=== PATIENT | female | born 2000 | race Caucasian/White ===

== ENCOUNTER 2023-11-17 03:09 | Emergency (ER) | payer SELFPAY ==
[2023-11-17 03:27] VITALS: BP 137/97
[2023-11-17 03:35] VITALS: BMI 22.1
--- NOTE | 2023-11-17 03:44 | ED.GENMED ---
History of Present Illness
General
Chief Complaint: Crisis Evaluation
Time Seen by Provider: 11/17/23 03:36
Travel History
Have you had any contact with someone who has COVID-19?: No
Do you have any symptoms of coronavirus? Fever > 100 degrees, chills, cough, shortness of breath, sore throat, loss of taste or smell, muscle aches, or headache?: No
History of Present Illness
History of Present Illness:
HPI: The initial history was obtained and discussion with the nurse who spoke to police who brought the patient here. The patient was brought here for evaluation as she verbalized suicidal thoughts however this was in the setting of being pulled
over for DUI. This is her second offense. Police went to the 302 her however the patient is clearly intoxicated upon arrival. At 4:30 AM, the patient tells me that she is never was suicidal and realizes now that she should not upset it. She says
that she was in a difficult situation. She said that she was told to drive another person's vehicle by somebody else�that she states that she does not have a car
EXAM:
GENERAL: Initially appeared histrionic and intoxicated however quickly calm down and then had normal conversation as of 4:30 AM
HEENT: Moist oral mucosa
CARDIOVASCULAR: No murmurs, normal heart rate and rhythm, No chest wall tenderness
PULMONARY: No respiratory distress, breath sounds are clear and equal
ABDOMEN: Soft with no peritoneal signs, no tenderness
NEUROLOGIC: Excellent strength all extremities, no coordination deficits
PSYCHIATRIC: Appears only mildly intoxicated but with reasonable insight and judgment
EXTREMITIES: Nontender, no edema, moves all extremities equally
SKIN: No rash, no lesions
ED COURSE:
3:45 AM: She was crying
4:30 AM: I initially evaluated patient and she was more appropriate
NUMBER AND COMPLEXITY OF PROBLEMS ADDRESSED AT THE ENCOUNTER
� Chronic conditions affecting care: Anxiety/depression, asthma, alcohol
� Acute Exacerbation and/or Progression of Chronic Illness: This is an acute problem
� Differential Diagnosis includes: Alcohol intoxication, alcohol use disorder, highly doubt truly suicidal
AMOUNT AND/OR COMPLEXITY OF DATA TO BE REVIEWED AND ANALYZED
� I performed an independent evaluation of and my interpretation is:
EKG:
CT:
X-rays:
Laboratory Studies: CBC normal, chemistries normal, hCG negative, UDS negative, alcohol 228
Other:
� Review of other/old records: I reviewed records, the patient was seen here in 2019 related to anxiety/depression
� Clinical information was obtained by an independent historian: History was also obtained by police
� Prescriptions/Medications Considered but not given:
� Further testing considered but not performed:
RISK OF COMPLICATIONS AND/OR MORBIDITY OR MORTALITY OF PATIENT MANAGEMENT
� Social determinants of health affecting care: Drinks alcohol
� Discussion with other providers: Crisis said that they will still need to interview the patient. I have asked crisis for reassessment to be performed around 8:45 AM as police did petition for 302.
� Escalation of care including admission/observation vs risk of discharge considered: Highly doubt the patient was ever truly suicidal. She admits to saying what she said but verbalizes regret at this point. She currently
denies any feeling of being suicidal.
Past History
Past History
ED Past Medical History: None, Asthma and Psychiatric (Anxiety /Depression)
ED Past Surgical History: None
Social History
Tobacco: Non-smoker
Alcohol: Occasional
Personal: Single
Living: with family
Phy Exam
Physical Exam
Physical Exam:
See HPI
Course
Orders/Labs/Results
Orders:
Orders
11/17/23 03:37
Test Result ONCE
11/17/23 03:44
Alcohol Urgent
Basic Metabolic Panel Urgent
Complete Blood Count/With Diff Urgent
HCG, Serum Qualitative Screen Urgent
Urine Drug Abuse Screen Urgent
Date Specimen was Collected: 11/17/23
Time Specimen was Collected: 03:37
Abnormal Lab Results
11/17/23
03:44
RBC 3.97 L 10^6/uL
(4.20-5.40)
Hct 35.4 L %
(37.0-47.0)
MCH 31.7 H pg
(27.0-31.0)
11/17/23 03:44
11/17/23 03:44
Vital Signs
Initial and Last Documented VS:
Initial Vital Signs
Temp Pulse Resp BP Pulse Ox
98.3 F 97 20 137/97 100
11/17/23 03:27 11/17/23 03:27 11/17/23 03:27 11/17/23 03:27 11/17/23 03:27
Last Documented Vital Signs
Temp Pulse Resp BP Pulse Ox
98.3 F 97 20 137/97 100
11/17/23 03:27 11/17/23 03:27 11/17/23 03:27 11/17/23 03:27 11/17/23 03:38
*Critical Care Note
Total Time (30-74mins, 75-104mins- exclusive of procedures): Not Applicable
ED Attending Note
-
Portions of this chart may have been created with voice recognition software.� Occasional wrong word or��sound alike� substitutions may have occurred due to the inherent limitations of voice recognition software.
Discharge Plan
Departure
Instructions: Alcohol Intoxication ED
Prescriptions:
No Action
quetiapine [Seroquel] 25 mg Tablet
75 mg PO HS
duloxetine [Cymbalta] 60 mg Capsule,Delayed Release(Dr/Ec)
60 mg PO DAILY
Lo Loestrin Fe 1 mg-10 mcg (24)/10 mcg (2) Tablet
1 tab PO DAILY
Referrals:
UNKNOWN - PT NOT,INTERVIEWE [Family Provider] -
Activity Restrictions/Additional Instructions:
Follow with your primary care doctor. Do not drink any alcohol today. Return here if worse or other concerns.
Interventions
Interventions:
*Risk Screen - Suicide Last Done: 11/17/23 03:27
*General Assessment Last Done: 11/17/23 03:42
*Neglect/Abuse Screening Last Done: 11/17/23 03:27
ED- Fall Risk Assessment Last Done: 11/17/23 03:27
*ED COVID-19 Vaccine History Last Done: 11/17/23 03:27
ED-Psychological Assessment Last Done: 11/17/23 03:38
[2023-11-17 03:56] LABS: % Eosinophils 0.3 % (0-6); % Immature Granulocytes 0.3 % (0-0.5); % Lymphocytes 29.5 % (20.5-51.1); % Monocytes 5.1 % (1.7-9.3); % Neutrophils 63.8 % (42.2-75.2); Absolute Basophils 0.1 10^3/uL (0-0.2); Absolute Lymphocytes 1.9 10^3/uL (1.2-3.4); Absolute Monocytes 0.3 10^3/uL (0.1-0.6); Hematocrit 35.4 % (37.0-47.0); Hemoglobin 12.6 g/dL (12.0-16.0); Mean Corp Hgb Conc. 35.6 g/dL (33.0-37.0); Mean Corpuscular Hgb 31.7 pg (27.0-31.0); Mean Corpuscular Volume 89.2 fL (81.0-99.0); Mean Platelet Volume 10.2 fL (7.4-10.4); Nucleated Red Blood Cells % 0 %; Platelet Count 271 10^3/uL (130-400); Red Blood Cell Count 3.97 10^6/uL (4.20-5.40); Red Cell Dist. Width 12.1 % (11.5-14.5); White Blood Cell Count 6.3 10^3/uL (4.8-10.8)
[2023-11-17 04:05] LABS: Amphetamines Negative (Negative); Barbiturates Negative (Negative); Benzodiazepines Negative (Negative); Buprenorphine Negative (Negative); Cocaine Negative (Negative); Marijuana Negative (Negative); Methadone Negative (Negative); Methamphetamines Negative (Negative); Opiates Negative (Negative); Phencyclidine Negative (Negative); Tricyclic Antidepressants Negative (Negative)
[2023-11-17 04:06] LABS: HCG, Serum Qualitative Screen Negative
[2023-11-17 04:17] LABS: Alcohol 228 mg/dl; Blood Urea Nitrogen 12 mg/dl (7-17); Calcium 9.3 mg/dl (8.4-10.2); Carbon Dioxide 23 mmol/L (22-30); Chloride 107 mmol/L (98-107); Estimated Creatinine Clearance 106 ml/min; Glucose 94 mg/dl (70-99); Sodium 140 mmol/L (135-145); eGFR > 60.00
[2023-11-17 09:44] LABS: Alcohol 136 mg/dl
--- NOTE | 2023-11-17 10:09 | EDRN ---
0950 patient outside the room speaking with rn discharge, refusing to return to the room states she is leaving as she has been here 10 hours and states she was told she could leave at 10am. Reoriented her to the situation while waiting for crisis to
come to room. Security has been contacted and outside the room.
[2023-11-17 11:31] LABS: Alcohol 109 mg/dl
[2023-11-17 13:17] LABS: Alcohol 75 mg/dl
--- NOTE | 2023-11-17 13:54 | ED.GENMED ---
History of Present Illness
General
Chief Complaint: Crisis Evaluation
Time Seen by Provider: 11/17/23 03:36
Travel History
Have you had any contact with someone who has COVID-19?: No
Do you have any symptoms of coronavirus? Fever > 100 degrees, chills, cough, shortness of breath, sore throat, loss of taste or smell, muscle aches, or headache?: No
History of Present Illness
History of Present Illness:
See prior note
Past History
Past History
ED Past Medical History: None, Asthma and Psychiatric (Anxiety /Depression)
ED Past Surgical History: None
Social History
Tobacco: Non-smoker
Alcohol: Occasional
Personal: Single
Living: with family
Phy Exam
Physical Exam
Physical Exam:
See prior note
Course
Orders/Labs/Results
Orders:
Orders
11/17/23 03:37
Test Result ONCE
11/17/23 03:44
Alcohol Urgent
Basic Metabolic Panel Urgent
Complete Blood Count/With Diff Urgent
HCG, Serum Qualitative Screen Urgent
Urine Drug Abuse Screen Urgent
Date Specimen was Collected: 11/17/23
Time Specimen was Collected: 03:37
11/17/23 09:15
Alcohol Urgent
11/17/23 11:11
Alcohol Urgent
11/17/23 12:50
Alcohol Urgent
Abnormal Lab Results
11/17/23
03:44
RBC 3.97 L 10^6/uL
(4.20-5.40)
Hct 35.4 L %
(37.0-47.0)
MCH 31.7 H pg
(27.0-31.0)
11/17/23 03:44
11/17/23 03:44
Vital Signs
Initial and Last Documented VS:
Initial Vital Signs
Temp Pulse Resp BP Pulse Ox
36.8 C 97 20 137/97 100
11/17/23 03:27 11/17/23 03:27 11/17/23 03:27 11/17/23 03:27 11/17/23 03:27
Last Documented Vital Signs
Temp Pulse Resp BP Pulse Ox
36.8 C 97 20 137/97 100
11/17/23 03:27 11/17/23 03:27 11/17/23 03:27 11/17/23 03:27 11/17/23 03:38
*Critical Care Note
Total Time (30-74mins, 75-104mins- exclusive of procedures): Not Applicable
Update Note
Update Note:
UPDATE Jose Bill MD
I saw and examined patient after signout reviewed all labs and imaging.
Focused HPI: 23-year-old female brought in intoxicated by police. She apparently made suicidal threats to police and apparently a 302 was filed but she has denied suicidal ideation here.
Physical exam: Awake and alert, clinically sober on my assessment. No signs of trauma. Speaking in full sentences, breathing comfortably. Ambulatory with a steady gait.
Medical Decision Makin-year-old female brought in intoxicated by police. Apparently made a suicidal threat but denies suicidal ideation adamantly here has absolutely no plan or thoughts of suicide she says. She was observed overnight alcohol
level cleared. Clinically sober now. She was assessed by our crisis team 302 was not upheld. Continues to deny suicidal ideation here. Discharged with precautions to avoid drinking heavily in the future.
ED Attending Note
-
Portions of this chart may have been created with voice recognition software.� Occasional wrong word or��sound alike� substitutions may have occurred due to the inherent limitations of voice recognition software.
Discharge Plan
Departure
Patient Disposition: Home (Routine Discharge)
Date of Disposition: 11/17/23
Time of Disposition: 13:51
Patient with high blood pressure during this ER visit?: No
Discharge Problem:
Alcohol intoxication
Instructions: Alcohol Intoxication ED
Prescriptions:
No Action
quetiapine [Seroquel] 25 mg Tablet
75 mg PO HS
duloxetine [Cymbalta] 60 mg Capsule,Delayed Release(Dr/Ec)
60 mg PO DAILY
Lo Loestrin Fe 1 mg-10 mcg (24)/10 mcg (2) Tablet
1 tab PO DAILY
Referrals:
UNKNOWN - PT NOT,INTERVIEWE [Family Provider] -
Activity Restrictions/Additional Instructions:
Follow with your primary care doctor. Do not drink any alcohol today. Return here if worse or other concerns.
Interventions
Interventions:
*Risk Screen - Suicide Last Done: 11/17/23 03:27
*General Assessment Last Done: 11/17/23 03:42
*Neglect/Abuse Screening Last Done: 11/17/23 03:27
ED- Fall Risk Assessment Last Done: 11/17/23 03:27
*ED COVID-19 Vaccine History Last Done: 11/17/23 03:27
*Nursing Disposition Last Done: 11/17/23 14:02
ED-Psychological Assessment Last Done: 11/17/23 03:38
Discharge Date and Time
Discharge Date/Time: 11/17/23 14:02
== END 2023-11-17 14:02 | disposition home or self-care (01) ==
LOC: EMR 03:09
PROVIDERS: Emergency Medicine; EMERGENCY PHYSICIAN Emergency Medicine
DX: F10.129 Alcohol abuse with intoxication, unspecified (principal); Y90.7 Blood alcohol level of 200-239 mg/100 ml; J45.909 Unspecified asthma, uncomplicated; F41.9 Anxiety disorder, unspecified; F32.A Depression, unspecified
CPT/HCPCS: 99283; 80048; 80306; 82077; 84703; 85025

== ENCOUNTER 2023-11-18 14:33 | Emergency (ER) | payer SELFPAY ==
[2023-11-18 15:12] VITALS: BP 130/80; BMI 21.6
--- NOTE | 2023-11-18 15:30 | ED.GENMED ---
Addendum entered and electronically signed by Kian Heller DO 11/18/23 18:06:
Update patient will be discharged home, 302 was upheld by myself until she was seen by psychiatry I reviewed the case with psychiatry, concur that the patient can safely be discharged home, she nontoxic in and out, comments were made yesterday while
she was intoxicated she is making no suicidal statements now she has been cooperative
Original Note:
History of Present Illness
General
Chief Complaint: Psychiatric Problem
Source: patient and records
Exam Limitations: none
Time Seen by Provider: 11/18/23 14:47
Nursing documentation reviewed up to this point in time: agreed with
Travel History
Have you had any contact with someone who has COVID-19?: No
Do you have any symptoms of coronavirus? Fever > 100 degrees, chills, cough, shortness of breath, sore throat, loss of taste or smell, muscle aches, or headache?: No
History of Present Illness
History of Present Illness:
23-year-old female returns for medical evaluation before psychiatric placement apparently she is under 302 now she had a DUI recently made comments to the police that she would harm herself has a history of mental illness, does not appear
intoxicated now
Past History
Past History
ED Past Medical History: Asthma and Psychiatric (Anxiety /Depression)
ED Past Surgical History: None
Social History
Tobacco: Non-smoker
Alcohol: Occasional
Personal: Single
Living: with family
Employment: Employed
Review of Systems
Review of Systems
All Other Systems: Not applicable
Psychiatric: Denies depression, anxiety, suicidal or hallucinations
Phy Exam
Physical Exam
Physical Exam:
Physical Exam
General: 23 female somewhat tangential but cooperative does not appear intoxicated
Neck: Without jaundice
Heart: Regular
Lungs: no acute respiratory distress.
Neuro: alert and oriented. no focal neurological deficits
Skin: no rash
Psychiatric: Tangential speech is not pressured denies suicidality no hallucination
Extremities: no edema.
Course
Orders/Labs/Results
Orders:
Orders
11/18/23 15:29
Test Result ONCE
11/18/23 16:01
Acetaminophen Urgent
Alcohol Urgent
Basic Metabolic Panel Urgent
Complete Blood Count/With Diff Urgent
HCG, Serum Qualitative Screen Urgent
Salicylate Urgent
Urine Drug Abuse Screen Urgent
Date Specimen was Collected: 11/18/23
Time Specimen was Collected: 15:39
Abnormal Lab Results
11/18/23
16:01
RBC 4.00 L 10^6/uL
(4.20-5.40)
Hct 36.5 L %
(37.0-47.0)
MCH 32.0 H pg
(27.0-31.0)
Chloride 110 H mmol/L
(98-107)
BUN 21 H mg/dl
(7-17)
Salicylates < 1.0 L mg/dl
(2.0-20.0)
Acetaminophen < 10 L ug/ml
(10-30)
Ur Tricyclics Screen Positive H
(Negative)
11/18/23 16:01
11/18/23 16:01
Vital Signs
Initial and Last Documented VS:
Initial Vital Signs
Temp Pulse Resp BP Pulse Ox
98 F 72 16 130/80 99
11/18/23 15:12 11/18/23 15:12 11/18/23 15:12 11/18/23 15:12 11/18/23 15:12
Last Documented Vital Signs
Temp Pulse Resp BP Pulse Ox
98 F 72 16 130/80 99
11/18/23 15:12 11/18/23 15:12 11/18/23 15:12 11/18/23 15:12 11/18/23 15:12
*Critical Care Note
Total Time (30-74mins, 75-104mins- exclusive of procedures): Not Applicable
Update Note
Update Note:
4:45 PM labs noted patient medically cleared for psychiatric evaluation placed
ED Attending Note
-
Portions of this chart may have been created with voice recognition software.� Occasional wrong word or��sound alike� substitutions may have occurred due to the inherent limitations of voice recognition software.
Discharge Plan
Departure
Patient Disposition: Psych Facility
Date of Disposition: 11/18/23
Time of Disposition: 16:44
Condition: Good
Discharge Problem:
Suicidal ideation
Prescriptions:
No Action
quetiapine [Seroquel] 25 mg Tablet
75 mg PO HS
duloxetine [Cymbalta] 60 mg Capsule,Delayed Release(Dr/Ec)
60 mg PO DAILY
Lo Loestrin Fe 1 mg-10 mcg (24)/10 mcg (2) Tablet
1 tab PO DAILY
Interventions
Interventions:
*Risk Screen - Suicide Last Done: 11/18/23 14:55
*General Assessment Last Done: 11/18/23 14:55
*Neglect/Abuse Screening Last Done: 11/18/23 14:55
ED- Fall Risk Assessment Last Done: 11/18/23 15:01
*ED COVID-19 Vaccine History Last Done: 11/18/23 14:55
ED-Psychological Assessment Last Done: 11/18/23 15:14
--- NOTE | 2023-11-18 15:46 | EDRN ---
At this time pt to BR and verbalized understanding of how to provide a urine spec.
--- NOTE | 2023-11-18 15:53 | EDRN ---
Pt calm and cooperative and was okay to have blood drawn at this time.
--- NOTE | 2023-11-18 16:00 | EDRN ---
security guards dispatcher Mo changed w/ security guards dispatcher [employer] for [employer] at this time.
[2023-11-18 16:08] LABS: % Eosinophils 4.6 % (0-6); % Immature Granulocytes 0.2 % (0-0.5); % Lymphocytes 29.9 % (20.5-51.1); % Monocytes 6.3 % (1.7-9.3); Absolute Basophils 0.1 10^3/uL (0-0.2); Absolute Eosinophils 0.2 10^3/uL (0-0.7); Absolute Lymphocytes 1.4 10^3/uL (1.2-3.4); Absolute Monocytes 0.3 10^3/uL (0.1-0.6); Absolute Neutrophils 2.8 10^3/uL (1.4-6.5); Hematocrit 36.5 % (37.0-47.0); Hemoglobin 12.8 g/dL (12.0-16.0); Mean Corp Hgb Conc. 35.1 g/dL (33.0-37.0); Mean Corpuscular Volume 91.3 fL (81.0-99.0); Mean Platelet Volume 10.3 fL (7.4-10.4); Nucleated Red Blood Cells % 0 %; Platelet Count 260 10^3/uL (130-400); Red Cell Dist. Width 12.6 % (11.5-14.5); White Blood Cell Count 4.8 10^3/uL (4.8-10.8)
[2023-11-18 16:18] LABS: HCG, Serum Qualitative Screen Negative
[2023-11-18 16:21] LABS: Acetaminophen < 10 ug/ml (10-30); Blood Urea Nitrogen 21 mg/dl (7-17); Calcium 9.1 mg/dl (8.4-10.2); Carbon Dioxide 23 mmol/L (22-30); Chloride 110 mmol/L (98-107); Estimated Creatinine Clearance 106 ml/min; Glucose 83 mg/dl (70-99); Potassium 4.1 mmol/L (3.5-5.1); Salicylate < 1.0 mg/dl (2.0-20.0); Sodium 139 mmol/L (135-145); eGFR > 60.00
[2023-11-18 16:27] LABS: Amphetamines Negative (Negative); Barbiturates Negative (Negative); Benzodiazepines Negative (Negative); Buprenorphine Negative (Negative); Cocaine Negative (Negative); Marijuana Negative (Negative); Methadone Negative (Negative); Methamphetamines Negative (Negative); Opiates Negative (Negative); Phencyclidine Negative (Negative); Tricyclic Antidepressants Positive (Negative)
[2023-11-18 16:28] LABS: Alcohol None Detected
--- NOTE | 2023-11-18 16:51 | EDRN ---
Crisis called for update on telepsyche and said it should be soon as they were talking w/ telepsyche now. Computer for telepsyche set up and checked that pt knows and pt did. Pt requested a cup of water that was brought to her at this time.
--- NOTE | 2023-11-18 17:45 | EDRN ---
This RN called crisis upon learning that pt was here Sunday night and discharged Sunday morning once ETOH level less than 100. Pt no longer claiming to suicidal ideation at that time. Pt had been a 201 w/ a back up [address] [place]
[facility] Police. Pt was discharged w/out [address] w/out documentation that she was cleared psychiatrically by a physician. Delegate called today and pt was brought back to be cleared or have 302 upheld by psychiatrist. Info in report that
was provided to me and placed in chart under 'additional Triage information' was 302 filed on Sunday, a back up 302, if pt were to be discharged. Dr. Bill had cleared pt medically but not psychiatrically. Crisis had discharged pt after
contacting supervisor rough end w/out instituting back up 302.
--- NOTE | 2023-11-18 18:03 | ED.GENMED ---
History of Present Illness
General
Chief Complaint: Psychiatric Problem
Time Seen by Provider: 11/18/23 14:47
Travel History
Have you had any contact with someone who has COVID-19?: No
Do you have any symptoms of coronavirus? Fever > 100 degrees, chills, cough, shortness of breath, sore throat, loss of taste or smell, muscle aches, or headache?: No
Past History
Past History
ED Past Medical History: Asthma and Psychiatric (Anxiety /Depression)
ED Past Surgical History: None
Social History
Tobacco: Non-smoker
Alcohol: Occasional
Personal: Single
Living: with family
Employment: Employed
Course
Orders/Labs/Results
Orders:
Orders
11/18/23 15:29
Test Result ONCE
11/18/23 16:01
Acetaminophen Urgent
Alcohol Urgent
Basic Metabolic Panel Urgent
Complete Blood Count/With Diff Urgent
HCG, Serum Qualitative Screen Urgent
Salicylate Urgent
Urine Drug Abuse Screen Urgent
Date Specimen was Collected: 11/18/23
Time Specimen was Collected: 15:39
Abnormal Lab Results
11/18/23
16:01
RBC 4.00 L 10^6/uL
(4.20-5.40)
Hct 36.5 L %
(37.0-47.0)
MCH 32.0 H pg
(27.0-31.0)
Chloride 110 H mmol/L
(98-107)
BUN 21 H mg/dl
(7-17)
Salicylates < 1.0 L mg/dl
(2.0-20.0)
Acetaminophen < 10 L ug/ml
(10-30)
Ur Tricyclics Screen Positive H
(Negative)
11/18/23 16:01
11/18/23 16:01
Vital Signs
Initial and Last Documented VS:
Initial Vital Signs
Temp Pulse Resp BP Pulse Ox
98 F 72 16 130/80 99
11/18/23 15:12 11/18/23 15:12 11/18/23 15:12 11/18/23 15:12 11/18/23 15:12
Last Documented Vital Signs
Temp Pulse Resp BP Pulse Ox
98 F 72 16 130/80 99
11/18/23 15:12 11/18/23 15:12 11/18/23 15:12 11/18/23 15:12 11/18/23 15:12
Update Note
Update Note:
Update 6 PM
302 was temporarily upheld until she was seen by psychiatry after review of the case from telepsych I am in agreement patient can be discharged home she is not currently suicidal, she was intoxicated yesterday when the statements were made
ED Attending Note
-
Portions of this chart may have been created with voice recognition software.� Occasional wrong word or��sound alike� substitutions may have occurred due to the inherent limitations of voice recognition software.
Discharge Plan
Departure
Patient Disposition: Home (Routine Discharge)
Date of Disposition: 11/18/23
Time of Disposition: 16:44
Patient with high blood pressure during this ER visit?: No
Condition: Good
Discharge Problem:
Alcoholism
Instructions: Bipolar Disorder (DC)
Prescriptions:
No Action
quetiapine [Seroquel] 25 mg Tablet
75 mg PO HS
duloxetine [Cymbalta] 60 mg Capsule,Delayed Release(Dr/Ec)
60 mg PO DAILY
Lo Loestrin Fe 1 mg-10 mcg (24)/10 mcg (2) Tablet
1 tab PO DAILY
Interventions
Interventions:
*Risk Screen - Suicide Last Done: 11/18/23 14:55
*General Assessment Last Done: 11/18/23 14:55
*Neglect/Abuse Screening Last Done: 11/18/23 14:55
ED- Fall Risk Assessment Last Done: 11/18/23 15:01
*ED COVID-19 Vaccine History Last Done: 11/18/23 14:55
ED-Psychological Assessment Last Done: 11/18/23 15:14
--- NOTE | 2023-11-18 18:12 | EDRN ---
Per crisis telepsychiatrist did not uphold [address] Heller also agreed w/ telepsychiatrist about NOT upholding the 302 and pt discharged.
== END 2023-11-18 18:16 | disposition home or self-care (01) ==
LOC: EMR 14:33
PROVIDERS: EMERGENCY PHYSICIAN Emergency Medicine
DX: R45.851 Suicidal ideations (principal); F32.A Depression, unspecified; F41.9 Anxiety disorder, unspecified; J45.909 Unspecified asthma, uncomplicated
CPT/HCPCS: 99283; 80048; 80143; 80179; 80306; 82077; 84703; 85025